=== PATIENT | female | born 1960 | race Caucasian/White ===

== ENCOUNTER 2020-10-11 14:28 | Inpatient (IN) | payer OTHER, SELFPAY ==
[~2020-10-11] VITALS: Ht 160 cm; Wt 81.6 kg
[2020-10-11 14:38] VITALS: BP_SYST 127
[2020-10-11] MEDS ORDERED: DIPHENHYDRAMINE INJ 50 MG/ML VIAL IVP ONE (15:00)
[2020-10-11] MEDS ORDERED: EPINEPHrine 1 MG/ML AMP SUBCUT ONE (15:00)
[2020-10-11] MEDS ORDERED: methylPREDNISolone SOD SUCC/PF 62.5 MG/ML VIAL IVP ONE (15:00)
[2020-10-11 17:09] LABS: BASOPHILS # (AUTO) 0.2 K/uL (0.0-0.2); EOSINOPHILS # (AUTO) 0.2 K/uL (0.0-0.4); EOSINOPHILS % (AUTO) 2.1 % (0.0-4.0); HEMATOCRIT 40.4 % (36-48); HEMOGLOBIN 14.3 g/dL (12.0-16.0); LYMPHOCYTES # (AUTO) 1.2 K/uL (1.0-5.5); LYMPHOCYTES % (AUTO) 12.5 % (20.5-51.5); MEAN CORPUSCULAR HEMOGLOBIN 32 pg (27-31); MEAN CORPUSCULAR HGB CONC 36 % (32-36); MEAN CORPUSCULAR VOLUME 89 fL (79.0-98.0); MONOCYTES # (AUTO) 0.1 K/uL (0.0-1.0); MONOCYTES % (AUTO) 1.6 % (1.7-9.3); NEUTROPHILS # (AUTO) 7.6 K/uL (1.8-7.7); NEUTROPHILS % (AUTO) 81.8 % (40.0-70.0); PLATELET COUNT (AUTO) 244 K/uL (130-430); RED BLOOD CELL COUNT(AUTO) 4.55 MIL/uL (4.2-6.2); RED CELL DISTRIBUTION WIDTH 13.3 % (9.0-15.0); WHITE BLOOD COUNT (AUTO) 9.3 K/uL (4.8-10.8)
[2020-10-11 17:11] LABS: CALCIUM 8.6 mg/dL (8.4-11.0); CREATININE 0.91 mg/dL (0.55-1.30); POTASSIUM 4.1 mmol/L (3.5-5.1)
[2020-10-11 17:17] LABS: ALBUMIN 3.3 g/dL (3.4-4.8); TOTAL BILIRUBIN 0.4 mg/dL (0.0-1.0)
[2020-10-11] MEDS ORDERED: ANAS1TAB51 PO (17:39)
[2020-10-11] MEDS ORDERED: SULF500T60 PO (17:39)
[2020-10-11] MEDS ORDERED: ROSU10TA2 PO (17:39)
[2020-10-11] MEDS ORDERED: KCL 20 mEq in D5/0.45NS 1000mL 1,000 ML IV ONE (17:45)
[2020-10-11 19:04] VITALS: BP_SYST 104
[2020-10-11] MEDS ORDERED: ACETAMINOPHEN 325 MG TABLET PO PRN (20:00)
[2020-10-11] MEDS ORDERED: DIPHENHYDRAMINE HCL 50 MG CAPSULE PO PRN (20:00)
[2020-10-11] MEDS: FAMOTIDINE PF 20 MG/2 ML VIAL IVP SCH (21:29)
[2020-10-11] MEDS: ENOXAPARIN SODIUM 40 MG/0.4 ML SYRINGE SUBCUT SCH (21:29)
[2020-10-11] MEDS: CLINDAMYCIN 600 mg/50mL D5W 50 ML IV SCH (21:30)
[2020-10-11] MEDS: KCL 20 mEq in D5NS 1000 mL 1,000 ML IV SCH (21:30)
[2020-10-12] VITALS: BP_SYST 120
[2020-10-12] MEDS: CLINDAMYCIN 600 mg/50mL D5W 50 ML IV SCH (03:33)
[2020-10-12] MEDS: methylPREDNISolone SOD SUCC/PF 62.5 MG/ML VIAL IVP SCH ×5 (06:01→23:27)
[2020-10-12 06:48] LABS: BASOPHILS # (AUTO) 0.1 K/uL (0.0-0.2); BASOPHILS % (AUTO) 0.6 % (0.0-2.0); EOSINOPHILS # (AUTO) 0.1 K/uL (0.0-0.4); EOSINOPHILS % (AUTO) 0.6 % (0.0-4.0); HEMATOCRIT 36.9 % (36-48); HEMOGLOBIN 12.5 g/dL (12.0-16.0); LYMPHOCYTES # (AUTO) 0.8 K/uL (1.0-5.5); LYMPHOCYTES % (AUTO) 9.6 % (20.5-51.5); MEAN CORPUSCULAR HEMOGLOBIN 30 pg (27-31); MEAN CORPUSCULAR HGB CONC 34 % (32-36); MEAN CORPUSCULAR VOLUME 89 fL (79.0-98.0); MONOCYTES # (AUTO) 0.1 K/uL (0.0-1.0); NEUTROPHILS # (AUTO) 7.7 K/uL (1.8-7.7); NEUTROPHILS % (AUTO) 88.2 % (40.0-70.0); PLATELET COUNT (AUTO) 239 K/uL (130-430); RED BLOOD CELL COUNT(AUTO) 4.14 MIL/uL (4.2-6.2); RED CELL DISTRIBUTION WIDTH 13.3 % (9.0-15.0); WHITE BLOOD COUNT (AUTO) 8.7 K/uL (4.8-10.8)
[2020-10-12 07:37] LABS: CREATININE 0.92 mg/dL (0.55-1.30); POTASSIUM 3.7 mmol/L (3.5-5.1)
[2020-10-12 08:15] LABS: ERYTHROCYTE SEDIMENTATION RATE 23 MM/HR (0-20)
[2020-10-12] MEDS: FAMOTIDINE PF 20 MG/2 ML VIAL IVP SCH ×2 (09:30→21:23)
[2020-10-12] MEDS: ANASTROZOLE 1 MG TABLET (ARIMIDEX) PO SCH (09:30)
[2020-10-12] MEDS: KCL 20 mEq in D5NS 1000 mL 1,000 ML IV SCH ×2 (11:29→23:29)
[2020-10-12 12:15] VITALS: BP_SYST 120
[2020-10-12] MEDS: ACYCLOVIR 400 MG TABLET PO SCH ×3 (14:48→21:23)
[2020-10-12 16:00] VITALS: BP_SYST 117
[2020-10-12 20:00] VITALS: BP_SYST 111
[2020-10-12] MEDS: DOXYCYCLINE HYCLATE 100 MG in D5W 100 ML IV SCH (21:22)
[2020-10-12] MEDS: ENOXAPARIN SODIUM 40 MG/0.4 ML SYRINGE SUBCUT SCH (21:24)
[2020-10-13] VITALS: BP_SYST 128
[2020-10-13] MEDS: ACYCLOVIR 400 MG TABLET PO SCH ×3 (05:37→14:15)
[2020-10-13] MEDS: methylPREDNISolone SOD SUCC/PF 62.5 MG/ML VIAL IVP SCH ×3 (05:37→21:59)
[2020-10-13 08:00] VITALS: BP_SYST 143
[2020-10-13] MEDS: ANASTROZOLE 1 MG TABLET (ARIMIDEX) PO SCH (09:08)
[2020-10-13] MEDS: FAMOTIDINE PF 20 MG/2 ML VIAL IVP SCH ×2 (09:08→21:50)
[2020-10-13] MEDS: DOXYCYCLINE HYCLATE 100 MG in D5W 100 ML IV SCH (09:08)
[2020-10-13 11:32] VITALS: BP_SYST 146
[2020-10-13] MEDS: KCL 20 mEq in D5NS 1000 mL 1,000 ML IV SCH (12:07)
[2020-10-13 16:00] VITALS: BP_SYST 136
[2020-10-13] MEDS: ENOXAPARIN SODIUM 40 MG/0.4 ML SYRINGE SUBCUT SCH (21:55)
[2020-10-14 00:29] VITALS: BP_SYST 139
[2020-10-14] MEDS: KCL 20 mEq in D5NS 1000 mL 1,000 ML IV SCH ×2 (01:50→15:10)
[2020-10-14] MEDS: methylPREDNISolone SOD SUCC/PF 62.5 MG/ML VIAL IVP SCH ×2 (06:07→13:57)
[2020-10-14 08:00] VITALS: BP_SYST 155
[2020-10-14] MEDS: ANASTROZOLE 1 MG TABLET (ARIMIDEX) PO SCH (09:03)
[2020-10-14] MEDS: FAMOTIDINE PF 20 MG/2 ML VIAL IVP SCH (09:04)
[2020-10-14 11:31] VITALS: BP_SYST 141
[2020-10-14 16:00] VITALS: BP_SYST 158
[2020-10-14 17:29] VITALS: BP_SYST 158
[2020-10-14] MEDS ORDERED: MEDROL PACK (17:36)
[2020-10-16 21:06] LABS: MYCOPLASMA PNEUMONIAE IgM <770 U/mL (0-769)
== END 2020-10-14 18:05 | disposition home or self-care (01) | DRG 596 ==
LOC: SED 14:28 → SMU 17:39
PROVIDERS: ADMIT Family Medicine; ATTEND Family Medicine
DX: L51.1 Stevens-Johnson syndrome (principal); E87.1 Hypo-osmolality and hyponatremia; E78.5 Hyperlipidemia, unspecified; M06.9 Rheumatoid arthritis, unspecified; Z20.822 Contact with and (suspected) exposure to COVID-19; M19.90 Unspecified osteoarthritis, unspecified site; T37.0X5A Adverse effect of sulfonamides, initial encounter; Y92.89 Other specified places as the place of occurrence of the external cause; Z85.3 Personal history of malignant neoplasm of breast; Z88.0 Allergy status to penicillin; Z79.899 Other long term (current) drug therapy; Z90.10 Acquired absence of unspecified breast and nipple
CPT/HCPCS: 36415; 71045; 80048; 80053; 82785; 85025; 85651-TC; 86694; 86710; 86738; 87040-TC; 96374; 96375; 99291; J3490; J7060; U0003